=== PATIENT | male | born 1980 | race Caucasian/White ===

== ENCOUNTER 2023-07-23 09:47 | Outpatient (CLI) | payer BC, SELFPAY | END 2023-07-23 09:48 | disposition home or self-care (01) | LOC: LKVREF 09:48 | PROVIDERS: PCP Family Medicine; Visit Provider Family Medicine | DX: Z83.3 Family history of diabetes mellitus (principal); Z13.1 Encounter for screening for diabetes mellitus | CPT/HCPCS: 80048 ==